=== PATIENT | male | born 1980 | race Caucasian/White ===

== ENCOUNTER 2024-06-10 10:35 | Emergency (ER) | payer SELFPAY ==
[2024-06-10] MEDS ORDERED: Ibuprofen 200 MG TAB ONE (10:54)
== END 2024-06-10 11:40 | disposition home or self-care (01) ==
LOC: BURERS 10:35
DX: S43.402A Unspecified sprain of left shoulder joint, initial encounter (principal); S80.12XA Contusion of left lower leg, initial encounter; S60.512A Abrasion of left hand, initial encounter; W22.8XXA Striking against or struck by other objects, initial encounter